=== PATIENT | male | born 1945 | race Caucasian/White ===

== ENCOUNTER → 2016-08-22 | Outpatient (CLI) | payer OTHER ==
[~2016-08-22] MED LIST: ATOR40TA49 PO; FERR325T PO; TRAM50 PO
--- NOTE | 2016-09-19 13:54 | RSPPFT ---
DATE OF PROCEDURE: 08/22/16 COMMENTS: VOLUMES DYNAMIC: FVC moderately reduced; FEV1 severely reduced. STATIC: VTG, RV moderately to severely increased; TLC normal. FLOWS: FEV1% moderately reduced; FEF 25-75 severely reduced. DIFFUSION: Severely reduced. FLOW VOLUME LOOP: Pattern of variable intrathoracic airways obstructon. IMPRESSION: Severe obstructive ventilatory defect with severe hyperinflation and a reduction in diffusion consistent with emphysema. Airways resistance is increased. There is minimal change post-bronchodilator.
== END ==
LOC: HRSP 12:44
PROVIDERS: ATTEND Internal Medicine
DX: J44.9 Chronic obstructive pulmonary disease, unspecified (principal)
CPT/HCPCS: 94060; 94620; 94726; 94729

== ENCOUNTER 2017-11-04 14:37 | Emergency (ER) | payer OTHER ==
[2017-11-04 17:27] LABS: AUTOMATED NEUTROPHIL # 4.8 TH/MM3 (1.8-7.7); BASOPHIL # 0.1 TH/MM3 (0-0.2); BASOPHIL % 1.4 % (0.0-2.0); EOSINOPHIL # 0.2 TH/MM3 (0-0.4); EOSINOPHIL % 3.2 % (0.0-4.0); HEMATOCRIT 46.8 % (39.0-51.0); HEMO FLAGS DIFF FINAL; HEMOGLOBIN 15.6 GM/DL (13.0-17.0); LYMPH % 22.8 % (9.0-44.0); LYMPHOCYTE # 1.7 TH/MM3 (1.0-4.8); MEAN CELL VOLUME 90.4 FL (80.0-100.0); MEAN CORPUSCULAR HEMOGLOBIN 30.2 PG (27.0-34.0); MEAN CORPUSCULAR HGB CONC 33.4 % (32.0-36.0); MEAN PLATELET VOLUME 7.2 FL (7.0-11.0); MONO % 9.5 % (0.0-8.0); MONOCYTE # 0.7 TH/MM3 (0-0.9); NEUT % 63.1 % (16.0-70.0); PLATELET COUNT 305 TH/MM3 (150-450); RED BLOOD COUNT 5.17 MIL/MM3 (4.50-5.90); RED CELL DISTRIBUTION WIDTH 12.3 % (11.6-17.2); WHITE BLOOD COUNT 7.4 TH/MM3 (4.0-11.0)
[2017-11-04 17:36] LABS: CHLORIDE 104 MEQ/L (98-107); POTASSIUM 4.4 MEQ/L (3.5-5.1); SODIUM (NA) 138 MEQ/L (136-145)
[2017-11-04 17:38] LABS: CALCIUM 8.8 MG/DL (8.5-10.1)
[2017-11-04] MEDS: methylPREDNISolone SOD SUCC 125 MG/2 ML VIAL IV PUSH (17:38)
[2017-11-04] MEDS: diphenhydrAMINE HCL 50 MG/ML VIAL IV PUSH (17:38)
[2017-11-04 17:39] LABS: ANION GAP 4 MEQ/L (5-15); BICARBONATE 29.9 MEQ/L (21.0-32.0); BLOOD UREA NITROGEN 27 MG/DL (7-18); GLUCOSE,RANDOM 86 MG/DL (74-106)
[2017-11-04 17:42] LABS: GLOMERULAR FILTRATION RATE 46 ML/MIN (>89)
[2017-11-04 17:57] LABS: APTT (PATIENT) 26.8 SEC (24.3-30.1)
[2017-11-04] MEDS: IOHEXOL 350 MG/ML 10 ML VIAL (for RAD DIAG) IVCONTRAST (18:20)
[2017-11-04] MEDS: SODIUM CHLOR 0.9% 1000 ML INJ 1,000 ML IV (18:44)
== END 2017-11-04 21:21 | disposition home or self-care (01) ==
LOC: PHED 14:37
DX: I70.209 Unspecified atherosclerosis of native arteries of extremities, unspecified extremity (principal); F17.200 Nicotine dependence, unspecified, uncomplicated; E78.00 Pure hypercholesterolemia, unspecified; D64.9 Anemia, unspecified
CPT/HCPCS: 75635; 80048; 85025; 85610; 85730; 93005; 96361; 96374; 96375; 99285-25